=== PATIENT | female | born 1960 | race Caucasian/White ===

== ENCOUNTER 2021-03-04 09:09 | Inpatient (IN) ==
[2021-03-04] MEDS ORDERED: ZOFRAN INJ 4 MG VIAL IVP ONE (10:02)
[2021-03-04] MEDS ORDERED: NS 1,000 ML IV 1,000 ML IV ONE ×2 (10:02→10:49)
--- NOTE | 2021-03-04 10:02 | DR.NAUSEAF ---
HPI Time Seen Time Seen by Provider: 03/04/21 09:51 Primary Care Physician Primary Care Physician: DR. KARMA PHAN HPI Comment HPI Comment: PATIENT WITH A HISTORY OF TYPE 2 DIABETES COMPLAINS OF LEFT LOWER ABDOMINAL PAIN, FEVER, EMESIS X 2 TODAY, URINARY SYMPTOMS FREQUENCY, URGENCY AND DYSURIA. DENIES DYSPNEA AND COUGH. Complaints Chief Complaint Doctors Comments: FEVER. VOMITING, DYSURIA, ABDOMINAL PAIN Chief Complaint:: PT C/O VOMITING, LOWER BACK PAIN, BURNING WITH URINATION & LLQ PAIN X2-3 DAYS. PT STATES SHE THINKS SHE MAY HAVE A UTI. COVID-19 Coronavirus risk:travel/contact w/high risk person: No Has patient experienced Coronavirus symptoms: No Source History Provided: Patient Mode of Arrival Mode of Arrival: Wheelchair Timing Onset of Chief Complaint: 03/01/21 PMH PMH Past Medical History: Yes Past Medical History: Anemia and Diabetes Past Surgical History: Yes Surgical History: , Cholecystectomy, Hysterectomy and Other Family History History of Family Medical Conditions: Yes Family Medical History: Diabetes Mellitus, Cancer and [place] Travel Risk Coronavirus risk:travel/contact w/high risk person: No Has patient experienced Coronavirus symptoms: No Infectious screening Have you traveled outside the country in the last 6 months?: No Isolation: Standard ROS Review of Systems Constitutional: See HPI and Weakness Eyes: No Symptoms Reported ENTM: No Symptoms Reported Respiratoy: No Symptoms Reported Cardiovascular: No Symptoms Reported Gastrointestinal/Abdominal: See HPI, Abdominal Pain and Vomiting Genitourinary: See HPI, Dysuria, Frequency and Pain Neurological: No Symptoms Reported Musculoskeletal: No Symptoms Reported Integumentary: No Symptoms Reported Hematologic/Lymphatic: No Symptoms Reported Endocrine: No Symptoms Reported Psychiatric: No Symptoms Reported All Other Systems: Reviewed and Negative PE Vital Signs Vitals: Temperature 97.6 F Pulse Rate [Right Radial] 86 Pulse Rate 90 Respiratory Rate 19 Blood Pressure [Left Arm] 87/53 Blood Pressure 100/56 O2 Sat by Pulse Oximetry 99 General Limitations: No Limitations General Appearance: Alert and In No Apparent Distress Head Head Exam: Normal Inspection and Atraumatic Eyes Eye exam: Normal Appearance and PERRL ENT ENT Exam: Normal Exam Neck Neck Exam: Normal Inspection and Full ROM Chest Chest Inspection: Normal Inspection Respiratory Respiratory Exam: Bilateral: Clear to Auscultation Cardiovascular Cardiovascular Exam: Regular Rate and Normal Rhythm Abdominal Exam Abdominal Exam: Normal Inspection, Normal Bowel Sounds, Soft and Tenderness (LEFT LOWER QUAD TENDERNESS) Abdominal Tenderness: LLQ Extremities Extremities Exam: Normal Inspection and Full ROM Back Back Exam: Normal Inspection and (L) CVA Tenderness Neurologic Neurological Exam: Alert and Oriented X3 Psychiatric Psychiatric Exam: Normal Affect and Normal Mood Skin Skin Exam: Warm and Dry MDM Differential Diagnosis Differential Diagnosis: Considerations may Include:: Bowel Obstruction, Inflammatory BD, Urinary Obstruction and Urinary Tract Infection COURSE Treatment Treatment: PLACED ON SEPSIS PROTOCOL 2 LITER BOLUS NORMAL SALINE FOR BP 88/50, IMPROVED TO BP 108/65, AFTER 2 SETS OF BLOOD CULTURES LEVAQUIN 500MG IVPB Reevaluation 1st: Improved Consultation Call Returned: 13:33 Consultation Comments: DISCUSSED WITH DR JOSE FOR ADMIT TO OBSERVATION Critical Care Notes Total Time (mins): 30 ROR Labs Reviewed Laboratory Results Reviewed?: Yes Result Diagrams: 03/04/21 10:18 03/04/21 10:18 Laboratory: WBC 16.2 X10^3/uL (3.6-10.0) H 03/04/21 10:18 RBC 4.33 X10^6/uL (3.5-5.4) 03/04/21 10:18 Hgb 11.2 g/dL (12.0-16.0) L 03/04/21 10:18 Hct 35.1 % (36.0-47.0) L 03/04/21 10:18 MCV 81.0 fL (80.0-100.0) 03/04/21 10:18 MCH 25.9 pg (27.0-34.0) L 03/04/21 10:18 MCHC 32.0 g/dL (33.0-35.0) L 03/04/21 10:18 RDW 15.7 % (11.6-16.5) 03/04/21 10:18 Plt Count 138 X10^3/uL (150.0-450.0) L 03/04/21 10:18 MPV 8.0 fL (7.4-11.0) 03/04/21 10:18 Neut % (Auto) 88.0 % (42.0-75.0) H 03/04/21 10:18 Lymph % (Auto) 3.9 % (21.0-51.0) L 03/04/21 10:18 Reeves % (Auto) 7.8 % (0.0-13.0) 03/04/21 10:18 Eos % (Auto) 0.1 % (0.9-2.9) L 03/04/21 10:18 Baso % (Auto) 0.2 % (0.2-1.0) 03/04/21 10:18 Neut # (Auto) 14.3 x10^3/uL (2.2-4.8) H 03/04/21 10:18 Lymph # (Auto) 0.6 X10^3/uL (1.3-2.9) L 03/04/21 10:18 Reeves # (Auto) 1.3 x10^3/uL (0.3-0.8) H 03/04/21 10:18 Eos # (Auto) 0.0 x10^3/uL (0.0-0.2) 03/04/21 10:18 Baso # (Auto) 0.0 X10^3/uL (0.0-0.1) 03/04/21 10:18 Absolute Nucleated RBC 0.0 /100WBC 03/04/21 10:18 Sodium 135 mmol/L (136-145) L 03/04/21 10:18 Corrected Sodium 137 mmol/L (136-145) 03/04/21 10:18 Potassium 3.4 mmol/L (3.5-5.1) L 03/04/21 10:18 Chloride 101 mmol/L (98-107) 03/04/21 10:18 Carbon Dioxide 22.5 mmol/L (21-32) 03/04/21 10:18 BUN 24 mg/dL (7-18) H 03/04/21 10:18 Creatinine 2.16 mg/dL (0.55-1.02) H 03/04/21 10:18 Est GFR (MDRD) Af Amer 30 (>60) L 03/04/21 10:18 Est GFR (MDRD) Non-Af 25 (>60) L 03/04/21 10:18 Glucose 166 mg/dL (65-99) H 03/04/21 10:18 Lactic Acid 3.6 mmol/L (0.4-2.0) H 03/04/21 10:18 Calcium 9.1 mg/dL (8.5-10.1) 03/04/21 10:18 Corrected Calcium 9.7 mg/dL (8.5-10.1) 03/04/21 10:18 Magnesium 0.7 mg/dL (1.7-2.9) L 03/04/21 10:18 Total Bilirubin 0.70 mg/dL (0.2-1.0) 03/04/21 10:18 AST 22 Units/L (15-37) 03/04/21 10:18 ALT 23 Units/L (12-78) 03/04/21 10:18 Alkaline Phosphatase 71 Units/L (46-116) 03/04/21 10:18 Troponin I < 0.02 ng/mL (0-1.5) 03/04/21 10:18 Total Protein 7.2 g/dL (6.4-8.2) 03/04/21 10:18 Albumin 3.2 g/dL (3.4-5.0) L 03/04/21 10:18 Globulin 4.0 g/dL (2.5-4.5) 03/04/21 10:18 Albumin/Globulin Ratio 0.8 Ratio (1.1-2.1) L 03/04/21 10:18 Specimen Type Clean catch urine 03/04/21 11:19 Urine Color Dark yellow (YELLOW) 03/04/21 11:19 Urine Appearance Cloudy (CLEAR) 03/04/21 11:19 Urine RBC 5-10 /HPF (0-3) A 03/04/21 11:19 Urine WBC Tntc /HPF (0-5) A 03/04/21 11:19 Ur Squamous Epith Cells Few /HPF (NEGATIVE) 03/04/21 11:19 Urine Bacteria 3+ /HPF (NEGATIVE) 03/04/21 11:19 Ur Culture Indicated? Yes/culture set up 03/04/21 11:19 Acetone, Semi-Quant Negative (NEGATIVE) 03/04/21 10:18 SARS CoV-2 RNA Rapid CHRISTINA Negative (NEGATIVE) 03/04/21 12:33 XRAY XRAY Interpreted by: Radiologist (ABDOMINAL PELVIC CT NO CONTRAST- NEGATIVE STUDY) EKG Rate: 96 [place]: Normal Rhythm: NSR ST: Nonsp Opioid Opioid Risk Tool Age (Dirk box if 16-45): No History of Preadolescent Sexual Abuse: No Total: 0 Total Score Risk Category: Low Risk Copyright: Yared RAMIREZ predicting aberrant behaviors Diagnosis Discharge Problem: Pyelonephritis of left kidney
[2021-03-04] MEDS ORDERED: LEVAQUIN PREMIX IV 500 MG 500 MG/100 ML BAG IV ONE ×2 (10:04→10:13)
[2021-03-04] MEDS ORDERED: ZOFRAN INJ 4 MG VIAL ONE (10:12)
[2021-03-04] MEDS ORDERED: NS 1,000 ML IV 1,000 ML ONE ×2 (10:13→10:51)
[2021-03-04 10:35] LABS: BASOPHILS % (AUTO) 0.2 % (0.2-1.0); EOSINOPHILS % (AUTO) 0.1 % (0.9-2.9); HEMATOCRIT 35.1 % (36.0-47.0); HEMOGLOBIN 11.2 g/dL (12.0-16.0); LYMPHOCYTES # (AUTO) 0.6 X10^3/uL (1.3-2.9); LYMPHOCYTES % (AUTO) 3.9 % (21.0-51.0); MEAN CORPUSCULAR HEMOGLOBIN 25.9 pg (27.0-34.0); MONOCYTES # (AUTO) 1.3 x10^3/uL (0.3-0.8); MONOCYTES % (AUTO) 7.8 % (0.0-13.0); NEUTROPHILS # (AUTO) 14.3 x10^3/uL (2.2-4.8); PLATELET COUNT 138 X10^3/uL (150.0-450.0); RED BLOOD COUNT 4.33 X10^6/uL (3.5-5.4); RED CELL DISTRIBUTION WIDTH 15.7 % (11.6-16.5); WHITE BLOOD COUNT 16.2 X10^3/uL (3.6-10.0)
[2021-03-04 10:48] LABS: ALANINE AMINOTRANSFERASE 23 Units/L (12-78); ALBUMIN 3.2 g/dL (3.4-5.0); ALKALINE PHOSPHATASE 71 Units/L (46-116); ASPARTATE AMINO TRANSFERASE 22 Units/L (15-37); BLOOD UREA NITROGEN 24 mg/dL (7-18); CALCIUM 9.1 mg/dL (8.5-10.1); CARBON DIOXIDE 22.5 mmol/L (21-32); CHLORIDE 101 mmol/L (98-107); COR CA(FOR HYPOALB) 9.7 mg/dL (8.5-10.1); COR NA(FOR HYPERGLY) 137 mmol/L (136-145); CREATININE 2.16 mg/dL (0.55-1.02); GLUCOSE 166 mg/dL (65-99); MAGNESIUM 0.7 mg/dL (1.7-2.9); POTASSIUM 3.4 mmol/L (3.5-5.1); SODIUM 135 mmol/L (136-145); TOTAL PROTEIN 7.2 g/dL (6.4-8.2); eGFR NON BLACK RACES 25 (>60)
[2021-03-04 10:49] LABS: LACTIC ACID 3.6 mmol/L (0.4-2.0)
[2021-03-04 11:49] LABS: APPEARANCE,URINE CLOUDY (CLEAR); BACTERIA,URINE 3+ /HPF (NEGATIVE); COLOR,URINE DARK YELLOW (YELLOW); SQUAMOUS EPITHELIAL CELL,UR FEW /HPF (NEGATIVE)
[2021-03-04] MEDS ORDERED: MAGNESIUM SULFATE 1 GRAM/100 mL PREMIX 1 G/100 ML BAG IV ONE ×2 (12:55→12:57)
[2021-03-04] MEDS: MAGNESIUM SULFATE 1 GRAM/100 mL PREMIX 2 G/200 ML BAG IV SCH ×2 (13:05→14:07)
--- NOTE | 2021-03-04 13:20 | CT ---
HISTORYLEFT LOWER ABDOMINAL PAINSTUDYABDOMEN/PELVIS W/O CONCOMPARISONNone.TECHNIQUEMultiple axial images of the abdomen and pelvis were obtained from the lung bases to the pubic symphysis without the administration of IV contrast. Dose reduction techniques including Automated Exposure Control (AEC) and adjustment of mA and kV were utilized.FINDINGSLack of contrast limits evaluation.The lung bases are clear. The heart is normal in size. Status post cholecystectomy. The liver, spleen, pancreas, adrenal glands have a benign noncontrast appearance. Left kidney is moderately small. No renal calculus or hydronephrosis. Urinary bladder is decompressed there is a punctate focus of nondependent gas in the urinary bladder on image 82 series 3.The uterus is present. No large abnormal pelvic mass. The appendix appears normal. Negative for bowel obstruction. Mildly atherosclerotic normal caliber abdominal aorta. No pathologic adenopathy. No free air, free fluid or collection. Incisional change in the anterior body wall. No acute osseous abnormality. Severe degenerative disc disease at L5-S1. Small fat containing left inguinal hernia.IMPRESSIONSmall focus of nondependent gas in the urinary bladder. Correlate for recent instrumentation. Otherwise this is suspicious for cystitis. Small fat containing left inguinal hernia.Electronically signed by: Russ Wade (Mar 04, 2021 13:18:55)
[2021-03-04] MEDS ORDERED: ZOFRAN INJ 4 MG VIAL IVP PRN (14:18)
[2021-03-04] MEDS: LEVAQUIN PREMIX IV 500 MG 500 MG/100 ML BAG IV NR ×2 (16:33→16:34)
[2021-03-04] MEDS: NS 1,000 ML IV 1,000 ML IV SCH (16:44)
[2021-03-04] MEDS: TYLENOL 325 MG TAB PO PRN ×2 (18:43→23:15)
[2021-03-04] MEDS: SNACK - Diabetic Appropriate PO SCH (20:00)
[2021-03-04] MEDS: NEURONTIN CAP 100 MG PO SCH (21:10)
[2021-03-04] MEDS: LIPITOR TAB 20 MG PO SCH (21:15)
[2021-03-05] MEDS: NS 1,000 ML IV 1,000 ML IV SCH ×3 (01:31→17:59)
[2021-03-05] MEDS: MOTRIN TAB 800 MG PO PRN ×2 (03:30→16:42)
[2021-03-05] MEDS ORDERED: MOTRIN TAB 800 MG PO ONE (03:34)
[2021-03-05] MEDS ORDERED: MOTRIN TAB 600 MG PO ONE (03:34)
[2021-03-05] MEDS ORDERED: AMARYL TAB 4 MG ONE (05:28)
[2021-03-05] MEDS: NEURONTIN CAP 100 MG PO SCH ×3 (06:20→21:30)
[2021-03-05 06:46] LABS: BASOPHILS % (AUTO) 0.2 % (0.2-1.0); EOSINOPHILS % (AUTO) 0.1 % (0.9-2.9); HEMATOCRIT 26.9 % (36.0-47.0); HEMOGLOBIN 9.1 g/dL (12.0-16.0); LYMPHOCYTES # (AUTO) 0.7 X10^3/uL (1.3-2.9); LYMPHOCYTES % (AUTO) 7.1 % (21.0-51.0); MEAN CORPUSCULAR HEMOGLOBIN 26.7 pg (27.0-34.0); MEAN CORPUSCULAR HGB CONC 33.7 g/dL (33.0-35.0); MEAN CORPUSCULAR VOLUME 79.4 fL (80.0-100.0); MEAN PLATELET VOLUME 8.1 fL (7.4-11.0); MONOCYTES # (AUTO) 0.7 x10^3/uL (0.3-0.8); MONOCYTES % (AUTO) 7.3 % (0.0-13.0); NEUTROPHILS # (AUTO) 8.1 x10^3/uL (2.2-4.8); NEUTROPHILS % (AUTO) 85.3 % (42.0-75.0); PLATELET COUNT 92 X10^3/uL (150.0-450.0); RED BLOOD COUNT 3.38 X10^6/uL (3.5-5.4); RED CELL DISTRIBUTION WIDTH 15.7 % (11.6-16.5); WHITE BLOOD COUNT 9.5 X10^3/uL (3.6-10.0)
[2021-03-05] MEDS ORDERED: AMARYL TAB 4 MG PO SCH (07:00)
[2021-03-05 07:20] LABS: ALANINE AMINOTRANSFERASE 17 Units/L (12-78); ALBUMIN 2.6 g/dL (3.4-5.0); ALKALINE PHOSPHATASE 55 Units/L (46-116); ASPARTATE AMINO TRANSFERASE 23 Units/L (15-37); BLOOD UREA NITROGEN 29 mg/dL (7-18); CALCIUM 7.9 mg/dL (8.5-10.1); CARBON DIOXIDE 19.1 mmol/L (21-32); CHLORIDE 101 mmol/L (98-107); CREATININE 1.98 mg/dL (0.55-1.02); GLUCOSE 93 mg/dL (65-99); POTASSIUM 4.2 mmol/L (3.5-5.1); SODIUM 132 mmol/L (136-145); TOTAL PROTEIN 6.1 g/dL (6.4-8.2); eGFR NON BLACK RACES 27 (>60)
[2021-03-05] MEDS ORDERED: KLOR-CON PO PRN (08:00)
[2021-03-05] MEDS ORDERED: MICRO K EXTEN CAP 10 MEQ PO PRN (08:00)
[2021-03-05] MEDS ORDERED: POTASSIUM CHL 60 MEQ/NS 0.45% 500 ML IV PRN (08:00)
[2021-03-05] MEDS ORDERED: NS 1,000 ML IV 1,000 ML IV SCH (08:00)
[2021-03-05] MEDS ORDERED: POTASSIUM CHLORIDE LIQ PO PRN (08:00)
[2021-03-05] MEDS ORDERED: K-RIDER 10 MEQ/NS 100 ML 10 MEQ/100 ML BAG IV PRN (08:00)
[2021-03-05] MEDS ORDERED: POTASSIUM CHL 40 MEQ/NS 0.45% 500 ML IV PRN (08:00)
[2021-03-05] MEDS: LEVAQUIN PREMIX IV 250 MG 250 MG/50 ML BAG IV SCH (09:08)
[2021-03-05] MEDS: MAGNESIUM SULFATE 1 GRAM/100 mL PREMIX 1 G/100 ML BAG IV PRN ×6 (09:34→20:54)
[2021-03-05] MEDS: TYLENOL 325 MG TAB PO PRN (15:33)
[2021-03-05] MEDS: LIPITOR TAB 20 MG PO SCH (20:53)
[2021-03-05] MEDS: SNACK - Diabetic Appropriate PO SCH (20:53)
[2021-03-06] MEDS: NS 1,000 ML IV 1,000 ML IV SCH ×5 (00:51→23:44)
[2021-03-06] MEDS: TYLENOL 325 MG TAB PO PRN ×3 (03:45→21:50)
[2021-03-06] MEDS: NEURONTIN CAP 100 MG PO SCH ×3 (05:46→21:18)
[2021-03-06 06:27] LABS: BASOPHILS % (AUTO) 0.1 % (0.2-1.0); EOSINOPHILS # (AUTO) 0.1 x10^3/uL (0.0-0.2); EOSINOPHILS % (AUTO) 1.3 % (0.9-2.9); HEMATOCRIT 26.6 % (36.0-47.0); HEMOGLOBIN 8.9 g/dL (12.0-16.0); LYMPHOCYTES # (AUTO) 0.5 X10^3/uL (1.3-2.9); LYMPHOCYTES % (AUTO) 6.1 % (21.0-51.0); MEAN CORPUSCULAR HEMOGLOBIN 26.4 pg (27.0-34.0); MEAN CORPUSCULAR HGB CONC 33.4 g/dL (33.0-35.0); MEAN CORPUSCULAR VOLUME 79.1 fL (80.0-100.0); MEAN PLATELET VOLUME 8.1 fL (7.4-11.0); MONOCYTES # (AUTO) 0.5 x10^3/uL (0.3-0.8); MONOCYTES % (AUTO) 5.3 % (0.0-13.0); NEUTROPHILS # (AUTO) 7.4 x10^3/uL (2.2-4.8); NEUTROPHILS % (AUTO) 87.2 % (42.0-75.0); PLATELET COUNT 96 X10^3/uL (150.0-450.0); RED BLOOD COUNT 3.36 X10^6/uL (3.5-5.4); RED CELL DISTRIBUTION WIDTH 15.8 % (11.6-16.5); WHITE BLOOD COUNT 8.4 X10^3/uL (3.6-10.0)
[2021-03-06 06:44] LABS: ALBUMIN 2.3 g/dL (3.4-5.0); CALCIUM 7.8 mg/dL (8.5-10.1); COR CA(FOR HYPOALB) 9.2 mg/dL (8.5-10.1); CREATININE 2.09 mg/dL (0.55-1.02)
[2021-03-06] MEDS ORDERED: NS 1,000 ML IV 1,000 ML IV ONE (07:57)
[2021-03-06] MEDS: MAGNESIUM SULFATE 1 GRAM/100 mL PREMIX 1 G/100 ML BAG IV PRN ×4 (08:58→23:45)
[2021-03-06] MEDS: LEVAQUIN PREMIX IV 250 MG 250 MG/50 ML BAG IV SCH (08:58)
[2021-03-06] MEDS: MOTRIN TAB 800 MG PO PRN (11:54)
[2021-03-06] MEDS: SNACK - Diabetic Appropriate PO SCH (20:15)
[2021-03-06] MEDS: LIPITOR TAB 20 MG PO SCH (20:30)
[2021-03-07] MEDS: NEURONTIN CAP 100 MG PO SCH ×3 (06:02→21:44)
[2021-03-07] MEDS: NS 1,000 ML IV 1,000 ML IV SCH ×3 (06:02→21:45)
[2021-03-07 06:20] LABS: BASOPHILS % (AUTO) 0.2 % (0.2-1.0); EOSINOPHILS % (AUTO) 0.5 % (0.9-2.9); HEMATOCRIT 27.8 % (36.0-47.0); HEMOGLOBIN 9.2 g/dL (12.0-16.0); LYMPHOCYTES # (AUTO) 0.3 X10^3/uL (1.3-2.9); LYMPHOCYTES % (AUTO) 5.1 % (21.0-51.0); MEAN CORPUSCULAR HEMOGLOBIN 26.2 pg (27.0-34.0); MEAN CORPUSCULAR HGB CONC 33.1 g/dL (33.0-35.0); MEAN CORPUSCULAR VOLUME 79.3 fL (80.0-100.0); MEAN PLATELET VOLUME 8.2 fL (7.4-11.0); MONOCYTES # (AUTO) 0.5 x10^3/uL (0.3-0.8); MONOCYTES % (AUTO) 9.3 % (0.0-13.0); NEUTROPHILS % (AUTO) 84.9 % (42.0-75.0); PLATELET COUNT 85 X10^3/uL (150.0-450.0); RED CELL DISTRIBUTION WIDTH 16.2 % (11.6-16.5); WHITE BLOOD COUNT 5.9 X10^3/uL (3.6-10.0)
[2021-03-07 06:39] LABS: ALANINE AMINOTRANSFERASE 14 Units/L (12-78); ALBUMIN 2.1 g/dL (3.4-5.0); ALKALINE PHOSPHATASE 86 Units/L (46-116); ASPARTATE AMINO TRANSFERASE 22 Units/L (15-37); BLOOD UREA NITROGEN 32 mg/dL (7-18); CALCIUM 7.6 mg/dL (8.5-10.1); CARBON DIOXIDE 17.2 mmol/L (21-32); CHLORIDE 104 mmol/L (98-107); COR CA(FOR HYPOALB) 9.1 mg/dL (8.5-10.1); CREATININE 1.82 mg/dL (0.55-1.02); GLUCOSE 100 mg/dL (65-99); POTASSIUM 3.7 mmol/L (3.5-5.1); SODIUM 133 mmol/L (136-145); eGFR NON BLACK RACES 30 (>60)
[2021-03-07 07:43] LABS: BAND NEUTROPHILS % 8 % (0-10)
[2021-03-07 07:44] LABS: HYPOCHROMASIA SLIGHT; PLATELET MORPHOLOGY COMMENT NORMAL (NORMAL)
[2021-03-07] MEDS ORDERED: NS 1,000 ML IV 1,000 ML IV ONE (09:14)
[2021-03-07] MEDS: LEVAQUIN PREMIX IV 250 MG 250 MG/50 ML BAG IV SCH (09:29)
[2021-03-07] MEDS: FLONASE NASAL SPRAY ENOSTRIL SCH ×2 (11:29→21:47)
[2021-03-07] MEDS: INVanz INJ 1 GRAM VIAL 1 G in NS 100 ML IV + SPIKE MINIBAG* 100 ML IV SCH (11:29)
[2021-03-07] MEDS ORDERED: ZOSYN VIAL 3.375 GRAMS 3.375 G in NS 100 ML IV + SPIKE MINIBAG* 100 ML IV SCH (12:00)
[2021-03-07] MEDS: MAALOX or MYLANTA PO PRN (12:52)
[2021-03-07] MEDS: MOTRIN TAB 800 MG PO PRN (14:50)
[2021-03-07] MEDS: LIPITOR TAB 20 MG PO SCH (21:43)
[2021-03-07] MEDS: K-DUR TAB 20 MEQ PO PRN (21:44)
[2021-03-07] MEDS: SNACK - Diabetic Appropriate PO SCH (21:45)
[2021-03-08] MEDS: NS 1,000 ML IV 1,000 ML IV SCH ×5 (00:41→22:15)
[2021-03-08] MEDS: MOTRIN TAB 800 MG PO PRN (03:31)
[2021-03-08] MEDS: NORCO 5/325 MG TAB PO PRN (04:10)
[2021-03-08] MEDS ORDERED: NORCO 5/325 MG TAB ONE (04:13)
[2021-03-08] MEDS: NEURONTIN CAP 100 MG PO SCH ×3 (06:01→22:18)
[2021-03-08] MEDS: MAALOX or MYLANTA PO PRN (06:08)
[2021-03-08 06:27] LABS: BASOPHILS % (AUTO) 0.2 % (0.2-1.0); LYMPHOCYTES # (AUTO) 0.2 X10^3/uL (1.3-2.9); LYMPHOCYTES % (AUTO) 6.3 % (21.0-51.0); MEAN CORPUSCULAR HEMOGLOBIN 25.9 pg (27.0-34.0); MEAN CORPUSCULAR HGB CONC 32.8 g/dL (33.0-35.0)
[2021-03-08 06:30] LABS: ALANINE AMINOTRANSFERASE 18 Units/L (12-78); ALBUMIN 2.1 g/dL (3.4-5.0); ALKALINE PHOSPHATASE 148 Units/L (46-116); ASPARTATE AMINO TRANSFERASE 31 Units/L (15-37); BLOOD UREA NITROGEN 29 mg/dL (7-18); CALCIUM 7.6 mg/dL (8.5-10.1); CHLORIDE 104 mmol/L (98-107); COR CA(FOR HYPOALB) 9.1 mg/dL (8.5-10.1); CREATININE 1.89 mg/dL (0.55-1.02); GLUCOSE 53 mg/dL (65-99); POTASSIUM 3.5 mmol/L (3.5-5.1); SODIUM 133 mmol/L (136-145); eGFR NON BLACK RACES 29 (>60)
[2021-03-08 06:34] LABS: CARBON DIOXIDE 13.8 mmol/L (21-32)
[2021-03-08 06:37] LABS: EOSINOPHILS % (AUTO) 0.9 % (0.9-2.9); HEMATOCRIT 30.8 % (36.0-47.0); HEMOGLOBIN 10.1 g/dL (12.0-16.0); MEAN PLATELET VOLUME 8.1 fL (7.4-11.0); MONOCYTES # (AUTO) 0.1 x10^3/uL (0.3-0.8); MONOCYTES % (AUTO) 3.8 % (0.0-13.0); NEUTROPHILS # (AUTO) 2.9 x10^3/uL (2.2-4.8); NEUTROPHILS % (AUTO) 88.8 % (42.0-75.0); PLATELET COUNT 59 X10^3/uL (150.0-450.0); RED CELL DISTRIBUTION WIDTH 16.8 % (11.6-16.5); WHITE BLOOD COUNT 3.2 X10^3/uL (3.6-10.0)
[2021-03-08 07:18] LABS: HYPOCHROMASIA SLIGHT; PLATELET MORPHOLOGY COMMENT NORMAL (NORMAL)
[2021-03-08 07:19] LABS: MICROCYTOSIS SLIGHT
[2021-03-08] MEDS: INVanz INJ 1 GRAM VIAL 1 G in NS 100 ML IV + SPIKE MINIBAG* 100 ML IV SCH (08:19)
[2021-03-08] MEDS ORDERED: NS 1,000 ML IV 1,000 ML IV ONE (10:09)
[2021-03-08] MEDS ORDERED: LEXAPRO ONE (11:02)
[2021-03-08] MEDS: FLONASE NASAL SPRAY ENOSTRIL SCH ×2 (11:13→22:18)
[2021-03-08] MEDS: LEXAPRO PO SCH (11:14)
[2021-03-08] MEDS: VIBRAMYCIN PO SCH ×2 (11:14→22:17)
[2021-03-08] MEDS: ACTOS PO SCH (11:14)
[2021-03-08] MEDS: LIPITOR TAB 20 MG PO SCH (22:17)
[2021-03-09 05:35] LABS: ALANINE AMINOTRANSFERASE 20 Units/L (12-78); ALBUMIN 1.9 g/dL (3.4-5.0); ALKALINE PHOSPHATASE 146 Units/L (46-116); ASPARTATE AMINO TRANSFERASE 40 Units/L (15-37); BLOOD UREA NITROGEN 29 mg/dL (7-18); CALCIUM 7.1 mg/dL (8.5-10.1); CARBON DIOXIDE 16.3 mmol/L (21-32); CHLORIDE 101 mmol/L (98-107); COR CA(FOR HYPOALB) 8.8 mg/dL (8.5-10.1); CREATININE 1.83 mg/dL (0.55-1.02); GLUCOSE 81 mg/dL (65-99); POTASSIUM 3.4 mmol/L (3.5-5.1); SODIUM 128 mmol/L (136-145); TOTAL PROTEIN 5.6 g/dL (6.4-8.2); eGFR NON BLACK RACES 30 (>60)
[2021-03-09 05:36] LABS: BASOPHILS % (AUTO) 0.2 % (0.2-1.0); EOSINOPHILS # (AUTO) 0.2 x10^3/uL (0.0-0.2); EOSINOPHILS % (AUTO) 2.5 % (0.9-2.9); HEMATOCRIT 26.2 % (36.0-47.0); HEMOGLOBIN 8.5 g/dL (12.0-16.0); LYMPHOCYTES # (AUTO) 0.7 X10^3/uL (1.3-2.9); LYMPHOCYTES % (AUTO) 12.4 % (21.0-51.0); MEAN CORPUSCULAR HEMOGLOBIN 25.6 pg (27.0-34.0); MEAN CORPUSCULAR HGB CONC 32.5 g/dL (33.0-35.0); MEAN CORPUSCULAR VOLUME 78.7 fL (80.0-100.0); MEAN PLATELET VOLUME 8.2 fL (7.4-11.0); MONOCYTES # (AUTO) 0.9 x10^3/uL (0.3-0.8); MONOCYTES % (AUTO) 14.3 % (0.0-13.0); NEUTROPHILS # (AUTO) 4.2 x10^3/uL (2.2-4.8); NEUTROPHILS % (AUTO) 70.6 % (42.0-75.0); PLATELET COUNT 77 X10^3/uL (150.0-450.0); RED BLOOD COUNT 3.33 X10^6/uL (3.5-5.4)
[2021-03-09 06:09] LABS: PLATELET MORPHOLOGY COMMENT NORMAL (NORMAL)
[2021-03-09] MEDS: NS 1,000 ML IV 1,000 ML IV SCH ×3 (06:20→14:02)
[2021-03-09] MEDS: NEURONTIN CAP 100 MG PO SCH ×3 (06:27→21:22)
[2021-03-09] MEDS: MAALOX or MYLANTA PO PRN (06:30)
[2021-03-09] MEDS ORDERED: LEXAPRO ONE (09:05)
[2021-03-09] MEDS: INVanz INJ 1 GRAM VIAL 1 G in NS 100 ML IV + SPIKE MINIBAG* 100 ML IV SCH (09:18)
[2021-03-09] MEDS: FLONASE NASAL SPRAY ENOSTRIL SCH ×2 (09:18→21:23)
[2021-03-09] MEDS: ACTOS PO SCH (09:18)
[2021-03-09] MEDS: VIBRAMYCIN PO SCH ×2 (09:19→21:22)
[2021-03-09] MEDS: LEXAPRO PO SCH (09:19)
[2021-03-09] MEDS: PROTONIX INJ 40 MG VIAL IVP SCH ×2 (09:45→21:23)
[2021-03-09] MEDS: CYTOTEC PO SCH ×4 (09:45→21:22)
[2021-03-09] MEDS ORDERED: PROCRIT or EPOGEN VIAL 10,000 UNITS SC ONE (09:59)
[2021-03-09 15:08] LABS: HEMATOCRIT 29.5 % (36.0-47.0); HEMOGLOBIN 9.6 g/dL (12.0-16.0)
[2021-03-09] MEDS: K-DUR TAB 20 MEQ PO PRN (17:58)
[2021-03-09] MEDS ORDERED: D5W 1,000 ML IV 1,000 ML IV ONE (18:38)
[2021-03-09] MEDS: D5W 1,000 ML IV 1,000 ML IV SCH ×2 (18:57→21:15)
[2021-03-09] MEDS: LIPITOR TAB 20 MG PO SCH (21:22)
[2021-03-10] MEDS: NS 1,000 ML IV 1,000 ML IV SCH ×2 (04:36→06:08)
[2021-03-10] MEDS: NEURONTIN CAP 100 MG PO SCH ×3 (05:40→21:27)
[2021-03-10 06:25] LABS: BASOPHILS % (AUTO) 0.3 % (0.2-1.0); EOSINOPHILS # (AUTO) 0.1 x10^3/uL (0.0-0.2); EOSINOPHILS % (AUTO) 1.6 % (0.9-2.9); HEMATOCRIT 27.4 % (36.0-47.0); LYMPHOCYTES # (AUTO) 0.9 X10^3/uL (1.3-2.9); LYMPHOCYTES % (AUTO) 14.2 % (21.0-51.0); MEAN CORPUSCULAR HEMOGLOBIN 26.1 pg (27.0-34.0); MEAN CORPUSCULAR VOLUME 79.1 fL (80.0-100.0); MEAN PLATELET VOLUME 8.1 fL (7.4-11.0); MONOCYTES % (AUTO) 16.1 % (0.0-13.0); NEUTROPHILS # (AUTO) 4.1 x10^3/uL (2.2-4.8); NEUTROPHILS % (AUTO) 67.8 % (42.0-75.0); PLATELET COUNT 83 X10^3/uL (150.0-450.0); RED BLOOD COUNT 3.46 X10^6/uL (3.5-5.4); RED CELL DISTRIBUTION WIDTH 16.9 % (11.6-16.5); WHITE BLOOD COUNT 6.1 X10^3/uL (3.6-10.0)
[2021-03-10 06:37] LABS: ALANINE AMINOTRANSFERASE 18 Units/L (12-78); ALKALINE PHOSPHATASE 130 Units/L (46-116); ASPARTATE AMINO TRANSFERASE 41 Units/L (15-37); BLOOD UREA NITROGEN 28 mg/dL (7-18); CALCIUM 7.8 mg/dL (8.5-10.1); CARBON DIOXIDE 15.7 mmol/L (21-32); CHLORIDE 110 mmol/L (98-107); COR CA(FOR HYPOALB) 9.4 mg/dL (8.5-10.1); CREATININE 1.76 mg/dL (0.55-1.02); GLUCOSE 91 mg/dL (65-99); POTASSIUM 3.8 mmol/L (3.5-5.1); SODIUM 137 mmol/L (136-145); TOTAL PROTEIN 5.8 g/dL (6.4-8.2); eGFR NON BLACK RACES 31 (>60)
[2021-03-10 07:33] LABS: PLATELET MORPHOLOGY COMMENT NORMAL (NORMAL)
[2021-03-10 07:34] LABS: ANISOCYTOSIS SLIGHT; HYPOCHROMASIA SLIGHT; MICROCYTOSIS SLIGHT
[2021-03-10] MEDS ORDERED: LEXAPRO ONE (08:08)
[2021-03-10] MEDS: VIBRAMYCIN PO SCH ×2 (09:10→21:26)
[2021-03-10] MEDS: LEXAPRO PO SCH (09:10)
[2021-03-10] MEDS: PROTONIX INJ 40 MG VIAL IVP SCH ×2 (09:10→21:27)
[2021-03-10] MEDS: INVanz INJ 1 GRAM VIAL 1 G in NS 100 ML IV + SPIKE MINIBAG* 100 ML IV SCH (09:10)
[2021-03-10] MEDS: CYTOTEC PO SCH ×4 (09:11→21:26)
[2021-03-10] MEDS: D5W 1,000 ML IV 1,000 ML IV SCH ×2 (09:11→21:28)
[2021-03-10] MEDS: FLONASE NASAL SPRAY ENOSTRIL SCH ×3 (09:11→21:28)
[2021-03-10] MEDS: ACTOS PO SCH (09:40)
[2021-03-10] MEDS ORDERED: CORTEF ONE ×2 (09:56→14:08)
[2021-03-10] MEDS: CORTEF PO SCH ×2 (10:22→14:09)
[2021-03-10] MEDS: FOLIC ACID TAB 1 MG PO SCH (10:23)
[2021-03-10] MEDS: TYLENOL 325 MG TAB PO PRN (10:52)
--- NOTE | 2021-03-10 17:49 | DR.PROGNOT ---
Hospital Progress Notes - Progress Note for Day of: Progress Note Date: 03/10/21 - Chief Complaint Chief Complaint: no active bleeding . urosepsis is under control . nom abdominal pain today .. Hgb 9... plate 83..Albumin 2 - Past Medical Family Social History Past Med/Fam/Surg Hx: No changes since H&P Allergies: Allergies amoxicillin Allergy (Verified 10/21/20 09:44) - Review Of Systems ROS: No change since H&P - Vital Signs Vital Signs: Temperature 98.6 F Pulse Rate [Right Radial] 76 Pulse Rate 91 Respiratory Rate 18 Blood Pressure [Right Arm] 83/51 Blood Pressure [Left Arm] 122/67 Blood Pressure 104/52 O2 Sat by Pulse Oximetry 96 - Physical Exam Oriented: Normal Eyes: Normal Ear: Normal Nose: Normal Throat: Normal Respiratory: Normal Cardiovascular: Normal : Normal GI: Tenderness: Normal Speech Pattern: Slurred - Laboratory and Diagnostics Result Diagrams: 03/10/21 05:10 03/10/21 05:10 Labs: 03/04/21 10:22 Blood Blood Culture - Final 03/04/21 10:18 Blood Blood Culture - Final 03/04/21 11:19 Urine,Clean Catch Urine Culture - Final Escherichia Coli Laboratory WBC 6.1 X10^3/uL (3.6-10.0) 03/10/21 05:10 RBC 3.46 X10^6/uL (3.5-5.4) L 03/10/21 05:10 Hgb 9.0 g/dL (12.0-16.0) L 03/10/21 05:10 Hct 27.4 % (36.0-47.0) L 03/10/21 05:10 MCV 79.1 fL (80.0-100.0) L 03/10/21 05:10 MCH 26.1 pg (27.0-34.0) L 03/10/21 05:10 MCHC 33.0 g/dL (33.0-35.0) 03/10/21 05:10 RDW 16.9 % (11.6-16.5) H 03/10/21 05:10 Plt Count 83 X10^3/uL (150.0-450.0) L 03/10/21 05:10 Plt Count Comment Decreased (ADEQUATE) A 03/10/21 05:10 MPV 8.1 fL (7.4-11.0) 03/10/21 05:10 Neut % (Auto) 67.8 % (42.0-75.0) 03/10/21 05:10 Lymph % (Auto) 14.2 % (21.0-51.0) L 03/10/21 05:10 [place]es % (Auto) 16.1 % (0.0-13.0) H 03/10/21 05:10 Eos % (Auto) 1.6 % (0.9-2.9) 03/10/21 05:10 Baso % (Auto) 0.3 % (0.2-1.0) 03/10/21 05:10 Neut # (Auto) 4.1 x10^3/uL (2.2-4.8) 03/10/21 05:10 Lymph # (Auto) 0.9 X10^3/uL (1.3-2.9) L 03/10/21 05:10 [place] # (Auto) 1.0 x10^3/uL (0.3-0.8) H 03/10/21 05:10 Eos # (Auto) 0.1 x10^3/uL (0.0-0.2) 03/10/21 05:10 Baso # (Auto) 0.0 X10^3/uL (0.0-0.1) 03/10/21 05:10 Absolute Nucleated RBC 0.0 /100WBC 03/10/21 05:10 Total Counted 100 03/10/21 05:10 Neutrophils % (Manual) 62 % (39-76) 03/10/21 05:10 Band Neutrophils % 8 % (0-10) 03/07/21 05:15 Lymphocytes % (Manual) 22 % (13-43) 03/10/21 05:10 Monocytes % (Manual) 11 % (4-9) H 03/10/21 05:10 Eosinophils % (Manual) 5 % (0-6) 03/10/21 05:10 Plt Morphology Comment Normal (NORMAL) 03/10/21 05:10 RBC Morphology Abnormal (NORMAL) A 03/10/21 05:10 Hypochromasia Slight A 03/10/21 05:10 Anisocytosis Slight A 03/10/21 05:10 Microcytosis Slight A 03/10/21 05:10 Sodium 137 mmol/L (136-145) 03/10/21 05:10 Corrected Sodium TNP 03/10/21 05:10 Potassium 3.8 mmol/L (3.5-5.1) 03/10/21 05:10 Chloride 110 mmol/L (98-107) H 03/10/21 05:10 Carbon Dioxide 15.7 mmol/L (21-32) L 03/10/21 05:10 BUN 28 mg/dL (7-18) H 03/10/21 05:10 Creatinine 1.76 mg/dL (0.55-1.02) H 03/10/21 05:10 Est GFR (MDRD) Af Amer 38 (>60) L 03/10/21 05:10 Est GFR (MDRD) Non-Af 31 (>60) L 03/10/21 05:10 Glucose 91 mg/dL (65-99) 03/10/21 05:10 POC Glucose (mg/dL) 103 mg/dL (65-99) H 03/10/21 16:50 Lactic Acid 1.8 mmol/L (0.4-2.0) 03/04/21 23:45 Calcium 7.8 mg/dL (8.5-10.1) L 03/10/21 05:10 Corrected Calcium 9.4 mg/dL (8.5-10.1) 03/10/21 05:10 Magnesium 2.7 mg/dL (1.7-2.9) 03/07/21 05:15 Iron 8 ug/dL (50-175) L 03/07/21 05:15 Transferrin 155 mg/dL (202-364) L 03/07/21 05:15 Ferritin 202 ng/mL (8-252) 03/07/21 05:15 Total Bilirubin 0.30 mg/dL (0.2-1.0) 03/10/21 05:10 AST 41 Units/L (15-37) H 03/10/21 05:10 ALT 18 Units/L (12-78) 03/10/21 05:10 Alkaline Phosphatase 130 Units/L (46-116) H 03/10/21 05:10 Troponin I < 0.02 ng/mL (0-1.5) 03/04/21 10:18 Total Protein 5.8 g/dL (6.4-8.2) L 03/10/21 05:10 Albumin 2.0 g/dL (3.4-5.0) L 03/10/21 05:10 Globulin 3.8 g/dL (2.5-4.5) 03/10/21 05:10 Albumin/Globulin Ratio 0.5 Ratio (1.1-2.1) L 03/10/21 05:10 Vitamin B12 1662 pg/mL (193-986) H 03/07/21 05:15 Folate 4.1 ng/mL (>8.6) L 03/07/21 05:15 Specimen Type Clean catch urine 03/04/21 11:19 Urine Color Dark yellow (YELLOW) 03/04/21 11:19 Urine Appearance Cloudy (CLEAR) 03/04/21 11:19 Urine RBC 5-10 /HPF (0-3) A 03/04/21 11:19 Urine WBC Tntc /HPF (0-5) A 03/04/21 11:19 Ur Squamous Epith Cells Few /HPF (NEGATIVE) 03/04/21 11:19 Urine Bacteria 3+ /HPF (NEGATIVE) 03/04/21 11:19 Ur Culture Indicated? Yes/culture set up 03/04/21 11:19 Acetone, Semi-Quant Negative (NEGATIVE) 03/04/21 10:18 SARS CoV-2 RNA Rapid CHRISTINA Negative (NEGATIVE) 03/04/21 12:33 - Assessment and Plan 1: subsiding urosepsis .. CKD. chronic anemia . fatty liver ( low Albumin , low Plate, slight elevated LFT.). for EGD on Wednesday . - Problem Patient Problems: Patient Problems Pyelonephritis of left kidney (Acute) N12
[2021-03-10] MEDS: LIPITOR TAB 20 MG PO SCH (21:27)
[2021-03-11] MEDS: NORCO 5/325 MG TAB PO PRN (05:42)
[2021-03-11] MEDS: NEURONTIN CAP 100 MG PO SCH ×3 (05:43→21:07)
[2021-03-11] MEDS ORDERED: LEXAPRO ONE (08:14)
[2021-03-11] MEDS ORDERED: PROTONIX TAB 40 MG PO SCH (09:00)
[2021-03-11 09:04] LABS: HEMOGLOBIN 7.7 g/dL (12.0-16.0); MEAN CORPUSCULAR HEMOGLOBIN 25.5 pg (27.0-34.0)
[2021-03-11 09:07] LABS: BASOPHILS % (AUTO) 0.6 % (0.2-1.0); EOSINOPHILS # (AUTO) 0.1 x10^3/uL (0.0-0.2); EOSINOPHILS % (AUTO) 1.8 % (0.9-2.9); HEMATOCRIT 23.5 % (36.0-47.0); LYMPHOCYTES # (AUTO) 1.4 X10^3/uL (1.3-2.9); LYMPHOCYTES % (AUTO) 23.5 % (21.0-51.0); MEAN CORPUSCULAR HGB CONC 32.6 g/dL (33.0-35.0); MEAN CORPUSCULAR VOLUME 78.2 fL (80.0-100.0); MEAN PLATELET VOLUME 7.5 fL (7.4-11.0); MONOCYTES # (AUTO) 0.7 x10^3/uL (0.3-0.8); MONOCYTES % (AUTO) 11.4 % (0.0-13.0); NEUTROPHILS # (AUTO) 3.6 x10^3/uL (2.2-4.8); NEUTROPHILS % (AUTO) 62.7 % (42.0-75.0); PLATELET COUNT 103 X10^3/uL (150.0-450.0); RED CELL DISTRIBUTION WIDTH 17.1 % (11.6-16.5); WHITE BLOOD COUNT 5.8 X10^3/uL (3.6-10.0)
[2021-03-11] MEDS ORDERED: CORTEF ONE ×2 (09:14→13:13)
[2021-03-11 09:18] LABS: ALANINE AMINOTRANSFERASE 16 Units/L (12-78); ALBUMIN 1.8 g/dL (3.4-5.0); ALKALINE PHOSPHATASE 96 Units/L (46-116); ASPARTATE AMINO TRANSFERASE 26 Units/L (15-37); BLOOD UREA NITROGEN 24 mg/dL (7-18); CALCIUM 7.9 mg/dL (8.5-10.1); CARBON DIOXIDE 16.7 mmol/L (21-32); CHLORIDE 113 mmol/L (98-107); COR CA(FOR HYPOALB) 9.7 mg/dL (8.5-10.1); CREATININE 1.63 mg/dL (0.55-1.02); GLUCOSE 99 mg/dL (65-99); POTASSIUM 3.3 mmol/L (3.5-5.1); SODIUM 143 mmol/L (136-145); TOTAL PROTEIN 5.1 g/dL (6.4-8.2); eGFR NON BLACK RACES 34 (>60)
[2021-03-11] MEDS: CORTEF PO SCH ×2 (09:23→13:19)
[2021-03-11] MEDS: ACTOS PO SCH ×2 (09:23→09:52)
[2021-03-11] MEDS: VIBRAMYCIN PO SCH ×2 (09:24→21:02)
[2021-03-11] MEDS: CYTOTEC PO SCH ×4 (09:24→21:02)
[2021-03-11] MEDS: FLONASE NASAL SPRAY ENOSTRIL SCH ×2 (09:24→21:03)
[2021-03-11] MEDS: LEXAPRO PO SCH (09:24)
[2021-03-11] MEDS: FOLIC ACID TAB 1 MG PO SCH (09:24)
[2021-03-11] MEDS: INVanz INJ 1 GRAM VIAL 1 G in NS 100 ML IV + SPIKE MINIBAG* 100 ML IV SCH (09:25)
[2021-03-11] MEDS: D5W 1,000 ML IV 1,000 ML IV SCH ×2 (09:25→09:30)
[2021-03-11 09:53] LABS: BAND NEUTROPHILS % 1 % (0-10); PLATELET MORPHOLOGY COMMENT NORMAL (NORMAL)
[2021-03-11 09:54] LABS: ANISOCYTOSIS SLIGHT; HYPOCHROMASIA SLIGHT; MICROCYTOSIS SLIGHT
[2021-03-11 14:03] VITALS: BMI 36.9
[2021-03-11] MEDS: K-DUR TAB 20 MEQ PO PRN (20:30)
[2021-03-11] MEDS: LIPITOR TAB 20 MG PO SCH (21:02)
[2021-03-11] MEDS ORDERED: NS 500 ML IV 500 ML IV ONE (21:43)
[2021-03-12] MEDS: NEURONTIN CAP 100 MG PO SCH ×3 (05:49→21:27)
[2021-03-12 06:57] LABS: BASOPHILS # (AUTO) 0.1 X10^3/uL (0.0-0.1); BASOPHILS % (AUTO) 1.1 % (0.2-1.0); EOSINOPHILS # (AUTO) 0.2 x10^3/uL (0.0-0.2); EOSINOPHILS % (AUTO) 1.8 % (0.9-2.9); HEMATOCRIT 32.2 % (36.0-47.0); LYMPHOCYTES % (AUTO) 21.5 % (21.0-51.0); MEAN CORPUSCULAR HEMOGLOBIN 26.2 pg (27.0-34.0); MEAN CORPUSCULAR HGB CONC 32.8 g/dL (33.0-35.0); MEAN CORPUSCULAR VOLUME 79.8 fL (80.0-100.0); MEAN PLATELET VOLUME 7.7 fL (7.4-11.0); MONOCYTES # (AUTO) 0.9 x10^3/uL (0.3-0.8); MONOCYTES % (AUTO) 9.7 % (0.0-13.0); NEUTROPHILS # (AUTO) 6.3 x10^3/uL (2.2-4.8); NEUTROPHILS % (AUTO) 65.9 % (42.0-75.0); PLATELET COUNT 98 X10^3/uL (150.0-450.0); RED BLOOD COUNT 4.04 X10^6/uL (3.5-5.4); RED CELL DISTRIBUTION WIDTH 16.4 % (11.6-16.5)
[2021-03-12 07:13] LABS: HEMOGLOBIN 10.6 g/dL (12.0-16.0)
[2021-03-12 07:22] LABS: ALANINE AMINOTRANSFERASE 20 Units/L (12-78); ALKALINE PHOSPHATASE 101 Units/L (46-116); ASPARTATE AMINO TRANSFERASE 27 Units/L (15-37); BLOOD UREA NITROGEN 21 mg/dL (7-18); CALCIUM 7.8 mg/dL (8.5-10.1); CARBON DIOXIDE 17.7 mmol/L (21-32); CHLORIDE 114 mmol/L (98-107); COR CA(FOR HYPOALB) 9.4 mg/dL (8.5-10.1); CREATININE 1.43 mg/dL (0.55-1.02); GLUCOSE 93 mg/dL (65-99); POTASSIUM 3.6 mmol/L (3.5-5.1); SODIUM 144 mmol/L (136-145); TOTAL PROTEIN 5.7 g/dL (6.4-8.2); eGFR NON BLACK RACES 40 (>60)
[2021-03-12 08:03] LABS: WHITE BLOOD COUNT 9.5 X10^3/uL (3.6-10.0)
[2021-03-12 08:04] LABS: PLATELET MORPHOLOGY COMMENT NORMAL (NORMAL)
[2021-03-12] MEDS ORDERED: NS 1,000 ML IV 1,000 ML ONE (10:15)
[2021-03-12] MEDS ORDERED: DIPRIVAN VIAL 20 ML ONE (10:36)
--- NOTE | 2021-03-12 10:59 | US ---
HISTORYpyelonephritis-left diabetes mellitusSTUDYABDOMEN USCOMPARISONCT abdomen and pelvis 03/04/2021TECHNIQUEFifty-three images made by the head butler. Tong scale and color-flow doppler images of the complete abdomen were obtained.FINDINGSThe liver has normal echogenicity and size. No mass or intrahepatic biliary duct dilatation is present. The intrahepatic inferior vena cava was imaged.The portal vein is patent with blood flow toward the liver. The hepatic artery is patent. The visualized hepatic veins are patent with blood flow toward the right atrium.The pancreatic head and body are unremarkable. The pancreatic tail is not well seen due to overlying bowel gas.No gallbladder is identified consistent with prior cholecystectomy. No extrahepatic biliary duct dilatation; common duct is normal.The right kidney is normal in size and echogenicity. The left kidney is normal in size and echogenicity. No hydronephrosis or solid mass. Right resistive index measures 0.7. Left resistive index measures 0.7.The spleen is normal in size and echogenicity.Aorta has a normal caliber with no abdominal aortic aneurysm. Aortic bifurcation not seen because of overlying bowel gas.No ascites.IMPRESSION1. No significant abnormalityElectronically signed by: Ace Cheung (Mar 12, 2021 10:57:53)
[2021-03-12] MEDS ORDERED: LEXAPRO ONE (11:15)
[2021-03-12] MEDS ORDERED: CORTEF ONE (11:16)
[2021-03-12] MEDS ORDERED: NS 100 ML IV + SPIKE MINIBAG* 100 ML IV ONE (11:19)
[2021-03-12] MEDS: CORTEF PO SCH ×2 (11:29→14:32)
[2021-03-12] MEDS: CYTOTEC PO SCH ×4 (11:29→21:25)
[2021-03-12] MEDS: ACTOS PO SCH (11:29)
[2021-03-12] MEDS: FOLIC ACID TAB 1 MG PO SCH (11:30)
[2021-03-12] MEDS: LEXAPRO PO SCH (11:30)
[2021-03-12] MEDS: VIBRAMYCIN PO SCH ×2 (11:30→21:26)
[2021-03-12] MEDS: INVanz INJ 1 GRAM VIAL 1 G in NS 100 ML IV + SPIKE MINIBAG* 100 ML IV SCH (11:31)
[2021-03-12] MEDS: FLONASE NASAL SPRAY ENOSTRIL SCH ×2 (11:50→21:26)
[2021-03-12] MEDS: D5W 1,000 ML IV 1,000 ML IV SCH ×3 (11:50→21:25)
[2021-03-12] MEDS: PROTONIX TAB 40 MG PO SCH (21:26)
[2021-03-12] MEDS: LIPITOR TAB 20 MG PO SCH (21:26)
[2021-03-13 04:12] VITALS: O2SAT 98
[2021-03-13] MEDS: NEURONTIN CAP 100 MG PO SCH (05:30)
[2021-03-13 06:15] LABS: BASOPHILS % (AUTO) 0.4 % (0.2-1.0); EOSINOPHILS # (AUTO) 0.2 x10^3/uL (0.0-0.2); EOSINOPHILS % (AUTO) 2.2 % (0.9-2.9); HEMOGLOBIN 11.5 g/dL (12.0-16.0); LYMPHOCYTES # (AUTO) 1.8 X10^3/uL (1.3-2.9); LYMPHOCYTES % (AUTO) 20.2 % (21.0-51.0); MEAN CORPUSCULAR HEMOGLOBIN 26.3 pg (27.0-34.0); MEAN CORPUSCULAR VOLUME 79.8 fL (80.0-100.0); MEAN PLATELET VOLUME 7.6 fL (7.4-11.0); MONOCYTES # (AUTO) 0.8 x10^3/uL (0.3-0.8); MONOCYTES % (AUTO) 8.7 % (0.0-13.0); NEUTROPHILS % (AUTO) 68.5 % (42.0-75.0); PLATELET COUNT 141 X10^3/uL (150.0-450.0); RED BLOOD COUNT 4.39 X10^6/uL (3.5-5.4); RED CELL DISTRIBUTION WIDTH 16.9 % (11.6-16.5); WHITE BLOOD COUNT 8.8 X10^3/uL (3.6-10.0)
[2021-03-13 06:49] LABS: ALBUMIN 2.3 g/dL (3.4-5.0); CALCIUM 8.2 mg/dL (8.5-10.1); CARBON DIOXIDE 19.4 mmol/L (21-32); COR CA(FOR HYPOALB) 9.6 mg/dL (8.5-10.1); CREATININE 1.3 mg/dL (0.55-1.02); POTASSIUM 3.5 mmol/L (3.5-5.1); TOTAL PROTEIN 6.3 g/dL (6.4-8.2)
[2021-03-13] MEDS ORDERED: CORTEF ONE (08:05)
[2021-03-13] MEDS ORDERED: LEXAPRO ONE (08:05)
[2021-03-13] MEDS: CORTEF PO SCH (09:25)
[2021-03-13] MEDS: FOLIC ACID TAB 1 MG PO SCH (09:26)
[2021-03-13] MEDS: VIBRAMYCIN PO SCH (09:26)
[2021-03-13] MEDS: CYTOTEC PO SCH (09:26)
[2021-03-13] MEDS: PROTONIX TAB 40 MG PO SCH (09:26)
[2021-03-13] MEDS: LEXAPRO PO SCH (09:27)
[2021-03-13] MEDS: ACTOS PO SCH (09:27)
[2021-03-13] MEDS: FLONASE NASAL SPRAY ENOSTRIL SCH (09:30)
[2021-03-13] MEDS: INVanz INJ 1 GRAM VIAL 1 G in NS 100 ML IV + SPIKE MINIBAG* 100 ML IV SCH (09:39)
[2021-03-13] MEDS: D5W 1,000 ML IV 1,000 ML IV SCH (09:39)
[2021-03-13 10:37] VITALS: BP 122/55; PULSE 74; TEMP 97.7
== END 2021-03-13 11:30 | disposition home or self-care (01) ==
LOC: ER 09:09 → MED/SURG 09:09
PROVIDERS: ADMIT Obstetrics & Gynecology Obstetrics; ATTEND Obstetrics & Gynecology Obstetrics